=== PATIENT | male | born 1950 | race Two or more races ===

== ENCOUNTER 2024-02-07 08:41 | Outpatient (CLI) | payer OTHER | END 2024-02-07 08:42 | disposition home or self-care (01) | LOC: NUCLEAR 08:41 → EDBD 08:41 → NUCLEAR 08:42 | PROVIDERS: ATTEND Thoracic Surgery (Cardiothoracic Vascular Surgery) | DX: I73.9 Peripheral vascular disease, unspecified (principal) ==